=== PATIENT | female | born 1965 | race Caucasian/White ===

== ENCOUNTER 2018-03-08 18:55 | Emergency (ER) | payer BC ==
[~2018-03-08] VITALS: Ht 160 cm; Wt 68.0 kg
[~2018-03-08 18:55] MED LIST: ALBU17AE23 IH; AZIT-21 PO; HYDR-34 PO; LACT10SO33 PO; LEVE500T99 PO
[2018-03-08] MEDS ORDERED: morphine INJ 10 MG/ML 1ML (SYR OR VIAL) ONE (19:48)
[2018-03-08] MEDS ORDERED: TETANUS & DIPHTHERIA TOX,ADULT 0.5 ML (TENIVAC) IM ONE (19:49)
[2018-03-08] MEDS ORDERED: RX-MUPIROCIN (BACTROBAN) 2% OINT 22 GM TUBE ONE (20:05)
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
[2018-03-08] MEDS ORDERED: RX-MUPIROCIN (BACTROBAN) 2% OINT 22 GM TUBE TOP STA (20:11)
[2018-03-08] MEDS ORDERED: morphine INJ 10 MG/ML 1ML (SYR OR VIAL) IJ ONE ×2 (20:15→20:30)
[2018-03-08] MEDS ORDERED: RX-OXYCODONE/APAP 5-325 MG #4 TAB PK PO PRN (20:15)
[2018-03-08] MEDS ORDERED: CEPH-507 PO (20:36)
[2018-03-08] MEDS ORDERED: OXYC1TAB87 PO (20:36)
[2018-03-08 20:43] VITALS: BP 180/145
[2018-03-08] MEDS ORDERED: BACITRACIN OINTMENT 28 GM TUBE TOP SCH (21:00)
== END 2018-03-08 20:43 | disposition home or self-care (01) ==
LOC: ER 18:55
DX: T22.052A Burn of unspecified degree of left shoulder, initial encounter (principal); T31.0 Burns involving less than 10% of body surface; J45.909 Unspecified asthma, uncomplicated; Z98.890 Other specified postprocedural states; X11.8XXA Contact with other hot tap-water, initial encounter; W18.30XA Fall on same level, unspecified, initial encounter; Y92.002 Bathroom of unspecified non-institutional (private) residence as the place of occurrence of the external cause
CPT/HCPCS: 90714; 99284

== ENCOUNTER → 2018-03-26 | Outpatient (CLI) | payer BC ==
[~2018-03-26] MED LIST changes: +CEPH-507 PO; +OXYC1TAB87 PO
== END ==
LOC: WOUNDCARE 09:26
PROVIDERS: ATTEND Surgery
DX: T22.252A Burn of second degree of left shoulder, initial encounter (principal); T22.232A Burn of second degree of left upper arm, initial encounter; T65.222A Toxic effect of tobacco cigarettes, intentional self-harm, initial encounter
CPT/HCPCS: 99213

== ENCOUNTER → 2018-04-01 | Outpatient (CLI) | payer BC | LOC: WOUNDCARE 11:57 | PROVIDERS: ATTEND Surgery | DX: T22.252A Burn of second degree of left shoulder, initial encounter (principal); T22.322A Burn of third degree of left elbow, initial encounter; T65.222A Toxic effect of tobacco cigarettes, intentional self-harm, initial encounter | CPT/HCPCS: 99213 ==

== ENCOUNTER → 2018-04-08 | Outpatient (CLI) | payer BC | LOC: WOUNDCARE 12:30 | PROVIDERS: ATTEND Surgery | DX: T22.252A Burn of second degree of left shoulder, initial encounter (principal); T22.232A Burn of second degree of left upper arm, initial encounter; T65.222A Toxic effect of tobacco cigarettes, intentional self-harm, initial encounter | CPT/HCPCS: 99212 ==

== ENCOUNTER 2021-06-24 10:47 | Outpatient (CLI) | payer SELFPAY ==
[~2021-06-24] VITALS: Ht 160 cm; Wt 75.7 kg
[2021-06-24] MEDS ORDERED: EPINEPHrine INJECTION 1 MG/ML AMP IM PRN (11:00)
[2021-06-24] MEDS ORDERED: diphenhydrAMINE 50 MG/ML INJ (BENADRYL) IV PRN (11:00)
[2021-06-24] MEDS ORDERED: ONDANSETRON 4 MG/2 ML (SDV) Z0FRAN IV PRN (11:00)
[2021-06-24] MEDS ORDERED: ACETAMINOPHEN 500 MG TAB (TYLENOL) PO PRN (11:00)
[2021-06-24] MEDS ORDERED: SOTROVIMAB 500 MG/NS 50 ML IVPB IV ONE ×2 (11:00)
[2021-06-24 11:08] VITALS: BP 157/84
[2021-06-24 12:17] VITALS: BP 142/86
== END 2021-06-24 12:17 ==
LOC: INFUSION 10:47
PROVIDERS: ATTEND Nurse Practitioner Community Health
DX: U07.1 COVID-19 (principal)